=== PATIENT | female | born 1970 | race Caucasian/White ===

== ENCOUNTER 2017-01-16 02:58 | Emergency (ER) | payer SELFPAY ==
[2017-01-16] MEDS ORDERED: Aspirin 81 MG Tab.Chew PO ONE (03:02)
[2017-01-16] MEDS ORDERED: Sodium Chloride 0.9% 10 ML Syringe FLUSH PRN (03:02)
[2017-01-16] MEDS ORDERED: Sodium Chloride 0.9% 2.5 ML Syringe FLUSH PRN (03:02)
--- NOTE | 2017-01-16 03:06 | EDM.PDOC ---
ED HPI GENERAL MEDICAL PROBLEM - General Chief Complaint: Cardiovascular Problem Stated Complaint: HIGH BLOOD PRESSURE, SHORTNESS OF BREATH Time Seen by Provider: 01/16/17 03:03 - History of Present Illness INITIAL COMMENTS - FREE TEXT/NARRATIVE: HISTORY AND PHYSICAL: History of present illness: Patient's 46-year-old female with history of hypertension who states she stopped her medicine on her own presents with concern of chest pain started approximately 4 hours prior to arrival patient equivocates regarding associated shortness of breath no nausea no vomiting no diaphoresis no fever no chills Review of systems: As per history of present illness and below otherwise all systems reviewed and negative. Past medical history: As per history of present illness and as reviewed below otherwise noncontributory. Surgical history: As per history of present illness and as reviewed below otherwise noncontributory. Social history: No reported history of drug or alcohol abuse. Family history: As per history of present illness and as reviewed below otherwise noncontributory. Physical exam: HEENT: Atraumatic, normocephalic, pupils reactive, negative for conjunctival pallor or scleral icterus, mucous membranes moist, throat clear, neck supple, nontender, trachea midline. Lungs: Clear to auscultation, breath sounds equal bilaterally, chest nontender. Heart: S1S2, regular, negative for clicks, rubs, or JVD. Abdomen: Soft, nondistended, nontender. Negative for masses or hepatosplenomegaly. Negative for costovertebral tenderness. Pelvis: Stable nontender. Genitourinary: Deferred. Rectal: Deferred. Extremities: Atraumatic, negative for cords or calf pain. Neurovascular unremarkable. Neuro: Awake, alert, oriented. Cranial nerves II through XII unremarkable. Cerebellum unremarkable. Motor and sensory unremarkable throughout. Exam nonfocal. Diagnostics: CBC CMP PT/INR troponin chest x-ray EKG Therapeutics: IV O2 monitor Impression: #1 chest pain #2 medical noncompliance #3 history of hypertension Definitive disposition and diagnosis as appropriate pending reevaluation and review of above. - Related Data Allergies Allergy/AdvReac Type Severity Reaction Status Date / Time morphine Allergy Airway Verified 01/16/17 03:08 Tightness Penicillins Allergy Airway Verified 01/17/14 22:19 Tightness Home Meds: Home Meds . [No Known Home Meds] 01/16/17 [History] Social & Family History - Tobacco Use Years of Tobacco use: 15 Used Tobacco, but Quit: No Second Hand Smoke Exposure: No - Alcohol Use Days Per Week of Alcohol Use: 0 - Recreational Drug Use Recreational Drug Use: No ED ROS GENERAL - Review of Systems Review Of Systems: ROS reveals no pertinent complaints other than HPI. ED EXAM, GENERAL - Physical Exam Exam: See Below (See dictation) Course - Vital Signs Last Recorded V/S: Last Vital Signs Temp 36.4 C 01/16/17 03:09 Pulse 104 H 01/16/17 04:07 Resp 24 H 01/16/17 04:07 BP 238/156 H 01/16/17 04:07 Pulse Ox 95 01/16/17 04:07 - Orders/Labs/Meds Orders: Active Orders 24 hr Category Date Time Status Cardiac Monitoring [RC] . DIRECTED Care 01/16/17 03:02 Active EKG Documentation Completion [RC] STAT Care 01/16/17 03:02 Active Chest 1V Frontal [CR] Stat Exams 01/16/17 03:02 Taken Nitroglycerin/D5W [Nitroglycerin 25 MG/D5W 250 ML] Med 01/16/17 03:30 Active 25 mg in 250 ml IV TITRATE Nitroprusside [Nitropress] 50 mg Med 01/16/17 04:30 Ordered Dextrose 5% in Water 248 ml IV TITRATE Sodium Chloride 0.9% [Saline Flush] Med 01/16/17 03:02 Active 10 ml FLUSH ASDIRECTED PRN Sodium Chloride 0.9% [Saline Flush] Med 01/16/17 03:02 Active 2.5 ml FLUSH ASDIRECTED PRN Saline Lock Insert [OM.PC] Stat Oth 01/16/17 03:02 Ordered Medication Orders Nitroglycerin/Dextrose (Nitroglycerin 25 Mg/D5w 250 Ml) 25 mg in 250 mls @ 12 mls/hr IV TITRATE FAB; 20 MCG/MIN PRN Reason: Protocol Last Admin: 01/16/17 03:28 Dose: 20 mcg/min, 12 mls/hr Sodium Nitroprusside 50 mg/ (Dextrose/Water) 250 mls @ IV TITRATE FAB; 0.5 MCG /KG/MIN PRN Reason: Protocol Sodium Chloride (Saline Flush) 10 ml FLUSH ASDIRECTED PRN PRN Reason: Keep Vein Open Sodium Chloride (Saline Flush) 2.5 ml FLUSH ASDIRECTED PRN PRN Reason: Keep Vein Open Labs: Laboratory Tests 01/16/17 01/16/17 01/16/17 Range/Units 03:15 03:15 03:15 WBC 11.36 H (4.0-11.0) K/uL RBC 5.38 (4.30-5.90) M/uL Hgb 16.5 H (12.0-16.0) g/dL Hct 48.0 H (36.0-46.0) % MCV 89.2 (80.0-98.0) fL MCH 30.7 (27.0-32.0) pg MCHC 34.4 (31.0-37.0) g/dL RDW Std Deviation 44.2 (28.0-62.0) fl RDW Coeff of Radhika 14 (11.0-15.0) % Plt Count 205 (150-400) K/uL MPV 10.70 (7.40-12.00) fL Neut % (Auto) 55.3 (48.0-80.0) % Lymph % (Auto) 34.4 (16.0-40.0) % [place] % (Auto) 7.9 (0.0-15.0) % Eos % (Auto) 2.1 (0.0-7.0) % Baso % (Auto) 0.3 (0.0-1.5) % Neut # (Auto) 6.3 H (1.4-5.7) K/uL Lymph # (Auto) 3.9 H (0.6-2.4) K/uL [place] # (Auto) 0.9 H (0.0-0.8) K/uL Eos # (Auto) 0.2 (0.0-0.7) K/uL Baso # (Auto) 0.0 (0.0-0.1) K/uL Nucleated RBC % 0.0 /100WBC Nucleated RBCs # 0 K/uL INR 0.92 (0.86-1.11) Sodium 140 (136-146) mmol/L Potassium 4.0 (3.5-5.1) mmol/L Chloride 106 (98-110) mmol/L Carbon Dioxide 22 (21-31) mmol/L BUN 19 (6.0-23.0) mg/dL Creatinine 0.9 (0.6-1.5) mg/dL Est Cr Clr Drug Dosing 89.18 mL/min Estimated GFR (MDRD) > 60.0 ml/min Glucose 119 H (60-110) mg/dL Calcium 9.2 (8.8-10.8) mg/dL Total Bilirubin 0.5 (0.1-1.5) mg/dL AST 20 (5-40) IU/L ALT 25 (8-54) IU/L Alkaline Phosphatase 94 (40-150) Troponin I (0.0-0.29) NG/ML Total Protein 7.7 (6.0-8.0) g/dL Albumin 4.5 (3.5-5.0) g/dL Globulin 3.2 (2.0-3.5) g/dL Albumin/Globulin Ratio 1.4 (1.3-2.8) Amylase 46 (10-90) U/L Lipase 32 (7-80) U/L 01/16/17 Range/Units 03:15 WBC (4.0-11.0) K/uL RBC (4.30-5.90) M/uL Hgb (12.0-16.0) g/dL Hct (36.0-46.0) % MCV (80.0-98.0) fL MCH (27.0-32.0) pg MCHC (31.0-37.0) g/dL RDW Std Deviation (28.0-62.0) fl RDW Coeff of Radhika (11.0-15.0) % Plt Count (150-400) K/uL MPV (7.40-12.00) fL Neut % (Auto) (48.0-80.0) % Lymph % (Auto) (16.0-40.0) % [place] % (Auto) (0.0-15.0) % Eos % (Auto) (0.0-7.0) % Baso % (Auto) (0.0-1.5) % Neut # (Auto) (1.4-5.7) K/uL Lymph # (Auto) (0.6-2.4) K/uL [place] # (Auto) (0.0-0.8) K/uL Eos # (Auto) (0.0-0.7) K/uL Baso # (Auto) (0.0-0.1) K/uL Nucleated RBC % /100WBC Nucleated RBCs # K/uL INR (0.86-1.11) Sodium (136-146) mmol/L Potassium (3.5-5.1) mmol/L Chloride (98-110) mmol/L Carbon Dioxide (21-31) mmol/L BUN (6.0-23.0) mg/dL Creatinine (0.6-1.5) mg/dL Est Cr Clr Drug Dosing mL/min Estimated GFR (MDRD) ml/min Glucose (60-110) mg/dL Calcium (8.8-10.8) mg/dL Total Bilirubin (0.1-1.5) mg/dL AST (5-40) IU/L ALT (8-54) IU/L Alkaline Phosphatase (40-150) Troponin I < 0.10 (0.0-0.29) NG/ML Total Protein (6.0-8.0) g/dL Albumin (3.5-5.0) g/dL Globulin (2.0-3.5) g/dL Albumin/Globulin Ratio (1.3-2.8) Amylase (10-90) U/L Lipase (7-80) U/L Meds: Medications Generic Name Dose Route Start Last Admin Trade Name Freq PRN Reason Stop Dose Admin Nitroglycerin/Dextrose 25 mg in 250 mls @ 12 mls/hr 01/16/17 03:30 01/16/17 03:28 Nitroglycerin 25 Mg/D5w 250 Ml IV 20 mcg/min TITRATE FAB 12 mls/hr Protocol Administration 20 MCG/MIN Sodium Nitroprusside 50 mg/ 250 mls @ 01/16/17 04:30 Dextrose/Water IV TITRATE FAB Protocol 0.5 MCG/KG/MIN Sodium Chloride 10 ml 01/16/17 03:02 Saline Flush FLUSH ASDIRECTED PRN Keep Vein Open Sodium Chloride 2.5 ml 01/16/17 03:02 Saline Flush FLUSH ASDIRECTED PRN Keep Vein Open Discontinued Medications Generic Name Dose Route Start Last Admin Trade Name Freq PRN Reason Stop Dose Admin Acetaminophen 1,000 mg 01/16/17 04:11 01/16/17 04:19 Tylenol Extra Strength PO 01/16/17 04:12 1,000 mg ONETIME ONE Administration Aspirin 162 mg 01/16/17 03:02 01/16/17 03:16 Aspirin PO 01/16/17 03:03 162 mg ONETIME ONE Administration Hydralazine HCl 10 mg 01/16/17 03:17 01/16/17 03:25 Apresoline IVPUSH 01/16/17 03:18 10 mg ONETIME ONE Administration Hydralazine HCl 10 mg 01/16/17 04:12 01/16/17 04:18 Apresoline IVPUSH 01/16/17 04:13 10 mg ONETIME ONE Administration Hydralazine HCl 10 mg 01/16/17 04:22 Apresoline IVPUSH 01/16/17 04:23 ONETIME ONE Lorazepam 1 mg 01/16/17 04:21 Ativan IVPUSH 01/16/17 04:22 ONETIME ONE Ondansetron HCl 4 mg 01/16/17 03:27 01/16/17 03:30 Zofran IVPUSH 01/16/17 03:28 4 mg ONETIME ONE Administration Ondansetron HCl Confirm 01/16/17 03:28 01/16/17 03:53 Zofran Administered 01/16/17 03:29 Not Given Dose 4 mg .ROUTE .STK-MED ONE Departure - Departure Time of Disposition: 04:29 Disposition: DC/Tfer to Acute Hospital 02 Reason for Transfer *Q: Other Condition: serious Clinical Impression: Chest pain, Hypertension Forms: ED Department Discharge - My Orders Last 24 Hours: My Active Orders 01/16/17 03:02 Cardiac Monitoring [RC] . DIRECTED EKG Documentation Completion [RC] STAT Chest 1V Frontal [CR] Stat Sodium Chloride 0.9% [Saline Flush] 10 ml FLUSH ASDIRECTED PRN Sodium Chloride 0.9% [Saline Flush] 2.5 ml FLUSH ASDIRECTED PRN Saline Lock Insert [OM.PC] Stat 01/16/17 03:30 Nitroglycerin/D5W [Nitroglycerin 25 MG/D5W 250 ML] 25 mg in 250 ml IV TITRATE 01/16/17 04:30 Nitroprusside [Nitropress] 50 mg Dextrose 5% in Water 248 ml IV TITRATE - Assessment/Plan Last 24 Hours: My Active Orders 01/16/17 03:02 Cardiac Monitoring [RC] . DIRECTED EKG Documentation Completion [RC] STAT Chest 1V Frontal [CR] Stat Sodium Chloride 0.9% [Saline Flush] 10 ml FLUSH ASDIRECTED PRN Sodium Chloride 0.9% [Saline Flush] 2.5 ml FLUSH ASDIRECTED PRN Saline Lock Insert [OM.PC] Stat 01/16/17 03:30 Nitroglycerin/D5W [Nitroglycerin 25 MG/D5W 250 ML] 25 mg in 250 ml IV TITRATE 01/16/17 04:30 Nitroprusside [Nitropress] 50 mg Dextrose 5% in Water 248 ml IV TITRATE
[2017-01-16] MEDS ORDERED: hydrALAZINE 20 MG/ML SDV IVPUSH ONE ×3 (03:17→04:22)
[2017-01-16] MEDS ORDERED: Ondansetron 4 MG/2 ML SDV IVPUSH ONE (03:27)
[2017-01-16] MEDS ORDERED: Ondansetron 4 MG/2 ML SDV ONE (03:28)
[2017-01-16] MEDS ORDERED: Nitroglycerin/D5W 25 MG/250 ML BOTTLE IV SCH (03:30)
[2017-01-16 03:41] LABS: CHLORIDE,CL 106 mmol/L (98-110); SODIUM,NA 140 mmol/L (136-146)
[2017-01-16 04:07] VITALS: BP 238/156
[2017-01-16] MEDS ORDERED: Acetaminophen 500 MG Tab PO ONE (04:11)
[2017-01-16] MEDS ORDERED: LORazepam 2 MG/ML MDV IVPUSH ONE (04:21)
[2017-01-16] MEDS ORDERED: Nitroprusside 50 MG in Dextrose 5% in Water 248 ML IV SCH ×2 (04:30)
--- NOTE | 2017-01-16 10:56 | CR ---
EXAM DATE: 01/16/17 PATIENT'S AGE: 46 Patient: JOCELYNN CALIX Facility: [place], [place] Site . Site : 1970 Study: XRay Chest [id number] 3:25:14 AM Ordering Physician: Austin Gonzalez Final Report: INDICATION: Chest pain. TECHNIQUE: Chest radiograph 1 view COMPARISON: None FINDINGS: Cardiovascular and mediastinum: The heart silhouette is normal in size and morphology. The mediastinum is normal in appearance. Lungs and pleural spaces: Both lungs are unremarkable in appearance. No sign of pleural effusion seen. No pneumothorax is identified. Bones and soft tissues: No significant findings. IMPRESSION: 1. No acute cardiopulmonary disease is seen. Dictated by Venkata Camejo MD @ 01/16/2017 3:53:27 AM Dictated by: Venkata Camejo MD @ 01/16/2017 03:53:31 (Electronic Signature) Report Signed by Proxy. [facility]
== END 2017-01-16 05:20 ==
LOC: MW.ED 02:58
DX: R07.9 Chest pain, unspecified (principal); I10 Essential (primary) hypertension; Z88.0 Allergy status to penicillin; Z88.5 Allergy status to narcotic agent
CPT/HCPCS: 36415; 71010; 80053; 82150; 83690; 84484; 85025; 85610; 93005; 96365; 96366; 96375; 96376; 99285; A9270; J0360; J2060; J7060; J2405

== ENCOUNTER 2018-01-01 20:09 | Observation (INO) | payer MEDICAID ==
[2018-01-01] MEDS ORDERED: Sodium Chloride 0.9% 1,000 ML IV ONE (20:10)
[2018-01-01] MEDS ORDERED: Aspirin 81 MG Tab.Chew PO ONE (20:10)
--- NOTE | 2018-01-01 20:23 | EDM.PDOC ---
ED HPI GENERAL MEDICAL PROBLEM - General Stated Complaint: CHEST PAIN Time Seen by Provider: 01/01/18 20:10 Source of Information: Reports: Patient History Limitations: Reports: No Limitations - History of Present Illness INITIAL COMMENTS - FREE TEXT/NARRATIVE: HISTORY AND PHYSICAL: History of present illness: Patient is a 47-year-old female who presents to the emergency room with complaints of chest pain that radiates into her left jaw and left shoulder. She states this started approximately 30 minutes prior to arrival, sudden onset. Complains of being diaphoretic, nauseated and lightheaded. Reports she took 2 baby aspirin this morning along with her home medications. States that nothing makes the pain better or worse. Denies any fever, chills, abdominal pain, vomiting, diarrhea or constipation. No history of smoking, alcohol or drug abuse. Review of systems: As per history of present illness and below otherwise all systems reviewed and negative. Past medical history: As per history of present illness and as reviewed below otherwise noncontributory. Surgical history: As per history of present illness and as reviewed below otherwise noncontributory. Social history: No reported history of drug or alcohol abuse. Family history: As per history of present illness and as reviewed below otherwise noncontributory. Physical exam: General: Well-developed and well-nourished 47-year-old female. Alert and oriented. Nontoxic appearing and in no acute distress. HEENT: Atraumatic, normocephalic, pupils equal and reactive bilaterally, negative for conjunctival pallor or scleral icterus, mucous membranes moist, throat clear, neck supple, nontender, trachea midline. No drooling or trismus noted. No meningeal signs Lungs: Clear to auscultation, breath sounds equal bilaterally, chest nontender. Heart: S1S2, regular rate and rhythm without overt murmur Abdomen: Soft, nondistended, obese, nontender. Negative for masses or hepatosplenomegaly. Negative for costovertebral tenderness. Pelvis: Stable nontender. Genitourinary: Deferred. Rectal: Deferred. Skin: Intact, warm, slightly diaphoretic. No lesions or rashes noted. Extremities: Atraumatic, moves all extremities per self without difficulty or deficits. Patient is ambulatory in the room. She is negative for cords or calf pain. Neurovascular unremarkable. Neuro: Awake, alert, oriented. Cranial nerves II through XII unremarkable. Cerebellum unremarkable. Motor and sensory unremarkable throughout. Exam nonfocal. Notes: Patient states that she does not currently have a primary care provider and has not seen a provider in approximately 6 months. She does routinely check her blood pressures which she reports has been normal. Our cardiac panel has been ordered. D.Dimer is slightly elevated; otherwise labs are unremarkable. Chest x-ray shows no evidence of infiltrate or pneumonia. EKG shows a normal sinus rhythm with a rate of 86. No changes from previous EKG on 01/16/2017. Will do a CTA at this time. Currently waiting for the CTA. Did discuss all the results that I have available at this time with the patient. She states she would like to be admitted for observation as she still just generally does not feel well. Hospitalist was consulted at this time. Dr Milelr will follow up on the CTA results and share this with the hospitalist. Diagnostics: CBC, CMP, troponin, EKG, one view chest Therapeutics: Aspirin, normal saline, nitroglycerin sublingual Impression: Chest Pain Plan: Observation Admission with Telemetry Definitive disposition and diagnosis as appropriate pending reevaluation and review of above. Onset: Today Duration: Minutes: Location: Reports: Neck, Chest - Related Data Allergies Allergy/AdvReac Type Severity Reaction Status Date / Time morphine Allergy Airway Verified 01/01/18 20:17 Tightness Penicillins Allergy Airway Verified 01/01/18 20:17 Tightness Home Meds: Home Meds . [No Known Home Meds] 01/16/17 [History] Past Medical History HEENT History: Reports: None Cardiovascular History: Reports: Hypertension Respiratory History: Reports: None Gastrointestinal History: Reports: None Genitourinary History: Reports: None Musculoskeletal History: Reports: None Neurological History: Reports: None Psychiatric History: Reports: Anxiety Endocrine/Metabolic History: Reports: None Hematologic History: Reports: None Oncologic (Cancer) History: Reports: None Dermatologic History: Reports: None - Infectious Disease History Infectious Disease History: Reports: None - Past Surgical History HEENT Surgical History: Reports: None Female Surgical History: Reports: None Social & Family History - Family History Family Medical History: Noncontributory ED ROS GENERAL - Review of Systems Review Of Systems: ROS reveals no pertinent complaints other than HPI. ED EXAM, GENERAL - Physical Exam Exam: See Below (See dictation) Course - Vital Signs Last Recorded V/S: Last Vital Signs Temp 97.8 F 01/01/18 20:14 Pulse 80 01/01/18 20:46 Resp 24 H 01/01/18 20:14 BP 164/87 H 01/01/18 20:46 Pulse Ox 98 01/01/18 20:46 - Orders/Labs/Meds Orders: Active Orders 24 hr Category Date Time Status EKG Documentation Completion [RC] STAT Care 01/01/18 20:10 Active CTA Chest W WO Contrast [Ang Chest] [CT] Stat Exams 01/01/18 21:05 Ordered Chest 1V Frontal [CR] Stat Exams 01/01/18 20:10 Taken Nitroglycerin [Nitrostat] Med 01/01/18 20:10 Active 0.4 mg SL Q5M PRN Medication Orders Nitroglycerin (Nitrostat) 0.4 mg SL Q5M PRN PRN Reason: Chest Pain Last Admin: 01/01/18 20:39 Dose: 0.4 mg Admin: 01/01/18 20:34 Dose: 0.4 mg Labs: Laboratory Tests 01/01/18 01/01/18 01/01/18 Range/Units 20:25 20:25 20:25 WBC 6.88 (4.0-11.0) K/uL RBC 4.79 (4.30-5.90) M/uL Hgb 15.3 (12.0-16.0) g/dL Hct 43.6 (36.0-46.0) % MCV 91.0 (80.0-98.0) fL MCH 31.9 (27.0-32.0) pg MCHC 35.1 (31.0-37.0) g/dL RDW Std Deviation 44.4 (28.0-62.0) fl RDW Coeff of Radhika 13 (11.0-15.0) % Plt Count 149 L (150-400) K/uL MPV 10.30 (7.40-12.00) fL Neut % (Auto) 51.4 (48.0-80.0) % Lymph % (Auto) 35.9 (16.0-40.0) % [place] % (Auto) 8.9 (0.0-15.0) % Eos % (Auto) 3.5 (0.0-7.0) % Baso % (Auto) 0.3 (0.0-1.5) % Neut # (Auto) 3.5 (1.4-5.7) K/uL Lymph # (Auto) 2.5 H (0.6-2.4) K/uL [place] # (Auto) 0.6 (0.0-0.8) K/uL Eos # (Auto) 0.2 (0.0-0.7) K/uL Baso # (Auto) 0.0 (0.0-0.1) K/uL Nucleated RBC % 0.0 /100WBC Nucleated RBCs # 0 K/uL D-Dimer, Quantitative 0.54 H (0.0-0.52) mg/LFEU Sodium 139 (136-145) mmol/L Potassium 4.3 (3.5-5.1) mmol/L Chloride 107 (98-107) mmol/L Carbon Dioxide 26.5 (21.0-32.0) mmol/L BUN 16 (7.0-18.0) mg/dL Creatinine 1.0 (0.6-1.0) mg/dL Est Cr Clr Drug Dosing 76.90 mL/min Estimated GFR (MDRD) 59.2 ml/min Glucose 141 H (74-106) mg/dL Calcium 9.3 (8.5-10.1) mg/dL Total Bilirubin 0.3 (0.2-1.0) mg/dL AST 20 (15-37) IU/L ALT 32 (14-63) IU/L Alkaline Phosphatase 66 (46-116) U/L Troponin I < 0.050 (0.000-0.056) ng/mL Total Protein 7.2 (6.4-8.2) g/dL Albumin 3.9 (3.4-5.0) g/dL Globulin 3.3 (2.0-3.5) g/dL Albumin/Globulin Ratio 1.2 L (1.3-2.8) Meds: Medications Generic Name Dose Route Start Last Admin Trade Name Freq PRN Reason Stop Dose Admin Nitroglycerin 0.4 mg 01/01/18 20:10 01/01/18 20:39 Nitrostat SL 0.4 mg Q5M PRN Administration Chest Pain Discontinued Medications Generic Name Dose Route Start Last Admin Trade Name Freq PRN Reason Stop Dose Admin Aspirin 324 mg 01/01/18 20:10 01/01/18 20:31 Aspirin PO 01/01/18 20:11 Not Given ONETIME ONE Sodium Chloride 1,000 mls @ 999 mls/hr 01/01/18 20:10 01/01/18 20:31 Normal Saline IV 01/01/18 21:10 999 mls/hr STAT ONE Administration Departure - Departure Clinical Impression: Chest pain, rule out acute myocardial infarction Referrals: PCP,None [Primary Care Provider] - - My Orders Last 24 Hours: My Active Orders 01/01/18 20:10 EKG Documentation Completion [RC] STAT Chest 1V Frontal [CR] Stat Nitroglycerin [Nitrostat] 0.4 mg SL Q5M PRN 01/01/18 21:05 CTA Chest W WO Contrast [Ang Chest] [CT] Stat - Assessment/Plan Last 24 Hours: My Active Orders 01/01/18 20:10 EKG Documentation Completion [RC] STAT Chest 1V Frontal [CR] Stat Nitroglycerin [Nitrostat] 0.4 mg SL Q5M PRN 01/01/18 21:05 CTA Chest W WO Contrast [Ang Chest] [CT] Stat
[2018-01-01] MEDS: Nitroglycerin 0.4 MG Tab.SL SL PRN ×2 (20:34→20:39)
[2018-01-01 20:52] LABS: CHLORIDE,CL 107 mmol/L (98-107); SODIUM,NA 139 mmol/L (136-145)
[2018-01-01] MEDS ORDERED: hydrALAZINE 20 MG/ML SDV IVPUSH PRN (23:43)
[2018-01-01] MEDS ORDERED: Nitroglycerin 2% Oint 1 GM UD Packet TOP PRN (23:44)
[2018-01-01] MEDS ORDERED: Enoxaparin 40 MG/0.4 ML Syringe SUBCUT SCH (23:45)
[2018-01-01] MEDS ORDERED: HYDROmorphone 2 MG/ML Syringe IVPUSH ONE (23:55)
[2018-01-01] MEDS ORDERED: HYDROmorphone 2 MG/ML SDV IVPUSH PRN (23:56)
[2018-01-02] MEDS ORDERED: HYDROmorphone 2 MG/ML SDV IVPUSH ONE (00:15)
[2018-01-02] MEDS ORDERED: Metoprolol Tartrate 5 MG/5 ML SDV IVPUSH ONE (00:17)
[2018-01-02] MEDS ORDERED: atorvaSTATin 40 MG Tab PO ONE (00:17)
[2018-01-02] MEDS ORDERED: atorvaSTATin 40 MG Tab ONE (00:28)
[2018-01-02] MEDS ORDERED: Carvedilol 25 MG Tab PO STA (00:50)
[2018-01-02] MEDS ORDERED: Heparin Sodium 5,000 Units/ML Vial IVPUSH PRN (00:54)
[2018-01-02] MEDS ORDERED: LORazepam 2 MG/ML SDV IVPUSH ONE (00:58)
[2018-01-02] MEDS ORDERED: LORazepam 2 MG/ML SDV IVPUSH PRN (00:59)
[2018-01-02] MEDS ORDERED: Nitroglycerin/D5W 25 MG/250 ML BOTTLE IV SCH (01:00)
[2018-01-02] MEDS: Heparin Sod,Pork In 0.45% Nacl 25,000 UNIT/500 ML IV.SOLN IV SCH ×2 (01:11→11:10)
[2018-01-02] MEDS ORDERED: Ondansetron 4 MG/2 ML SDV IVPUSH PRN (02:10)
[2018-01-02] MEDS: Acetaminophen 325 MG Tab PO PRN ×2 (02:20→06:27)
[2018-01-02 07:02] LABS: CHLORIDE,CL 108 mmol/L (98-107); SODIUM,NA 140 mmol/L (136-145)
[2018-01-02] MEDS ORDERED: Atropine 0.4 MG/ML SDV IVPUSH STA (07:02)
[2018-01-02] MEDS ORDERED: Atropine 0.1 MG/ML 10 ML Syringe IVPUSH STA (07:11)
[2018-01-02] MEDS ORDERED: Carvedilol 25 MG Tab PO SCH (09:00)
[2018-01-02] MEDS ORDERED: amLODIPine 5 MG Tab PO SCH (09:00)
--- NOTE | 2018-01-02 10:28 | PCM.HP ---
H&P History of Present Illness - General Date of Service: 01/02/18 Admit Problem/Dx: Admission Diagnosis/Problem Admission Diagnosis/Problem Chest pain Source of Information: Patient History Limitations: Reports: No Limitations - History of Present Illness Symptom Onset Date: 01/01/18 Duration of Symptoms: Reports: Hour(s): Location: Reports: Chest Quality: Reports: Pressure Left Chest Pain Score (Numeric/FACES): 4 - Related Data Allergies/Adverse Reactions: Allergies Allergy/AdvReac Type Severity Reaction Status Date / Time morphine Allergy Airway Verified 01/01/18 20:17 Tightness Penicillins Allergy Airway Verified 01/01/18 20:17 Tightness Home Medications: Home Meds Carvedilol [Coreg] 25 mg PO BID 01/01/18 [History] Losartan/Hydrochlorothiazide [Losartan-HCTZ 100-25 MG] each PO DAILY 01/01/18 [ History] amLODIPine [Norvasc] 10 mg PO DAILY 01/01/18 [History] HYDROmorphone [Dilaudid] 0.5 mg IVPUSH Q3H PRN sdv 01/02/18 [Rx] Heparin Sodium 0 units IVPUSH ASDIRECTED PRN vial 01/02/18 [Rx] LORazepam [Ativan] 1 mg IVPUSH Q4H PRN vial 01/02/18 [Rx] Nitroglycerin [Nitro-Bid 2%] 1 gm TOP Q6H PRN packet 01/02/18 [Rx] Past Medical History HEENT History: Reports: None Cardiovascular History: Reports: Hypertension Respiratory History: Reports: None Gastrointestinal History: Reports: None Genitourinary History: Reports: None Musculoskeletal History: Reports: None Neurological History: Reports: None Psychiatric History: Reports: Anxiety Endocrine/Metabolic History: Reports: None Hematologic History: Reports: None Oncologic (Cancer) History: Reports: None Dermatologic History: Reports: None - Infectious Disease History Infectious Disease History: Reports: None - Past Surgical History HEENT Surgical History: Reports: None Female Surgical History: Reports: None Social & Family History - Family History Family Medical History: Noncontributory - Tobacco Use Smoking Status *Q: Former Smoker Years of Tobacco use: 25 Used Tobacco, but Quit: Yes Month/Year Tobacco Last Used: 2013 - Caffeine Use Caffeine Use: Reports: None - Recreational Drug Use Recreational Drug Use: No H&P Review of Systems - Review of Systems: Review Of Systems: See Below General: Reports: Fatigue, Weight Loss (45lbs in 1 mo) HEENT: Reports: No Symptoms Pulmonary: Reports: No Symptoms Cardiovascular: Reports: Chest Pain Gastrointestinal: Reports: No Symptoms Genitourinary: Reports: No Symptoms Musculoskeletal: Reports: No Symptoms Skin: Reports: No Symptoms Psychiatric: Reports: No Symptoms Neurological: Reports: No Symptoms Hematologic/Lymphatic: Reports: No Symptoms Exam - Exam Exam: See Below - Vital Signs Vital Signs: Last Vital Signs Temp 98.5 F 01/02/18 04:00 Pulse 57 L 01/02/18 08:44 Resp 15 01/02/18 07:00 BP 121/61 01/02/18 08:44 Pulse Ox 96 01/02/18 07:00 Weight: 373 lb 7.409 oz - Exam General: Alert, Oriented, Cooperative HEENT: Conjunctiva Clear, EOMI, Hearing Intact, Mucosa Moist & [place] Neck: Supple, Trachea Midline. No: JVD Lungs: Clear to Auscultation, Normal Respiratory Effort Cardiovascular: Regular Rate, Regular Rhythm, Normal S1, Normal S2 GI/Abdominal Exam: Normal Bowel Sounds, Soft, Non-Tender, No Organomegaly, No Distention, No Abnormal Bruit Back Exam: Normal Inspection Extremities: Normal Inspection, Normal Range of Motion, Non-Tender Skin: Warm, Dry Neurological: Cranial Nerves Intact Neuro Extensive - Mental Status: Alert, Oriented x3 Neuro Extensive - Motor, Sensory, Reflexes: CN II-XII Intact Psychiatric: Alert, Normal Affect - Patient Data Lab Results Last 24 hrs: Laboratory Results - last 24 hr 01/01/18 01/01/18 01/01/18 Range/Units 20:25 20:25 20:25 WBC 6.88 (4.0-11.0) K/uL RBC 4.79 (4.30-5.90) M/uL Hgb 15.3 (12.0-16.0) g/dL Hct 43.6 (36.0-46.0) % MCV 91.0 (80.0-98.0) fL MCH 31.9 (27.0-32.0) pg MCHC 35.1 (31.0-37.0) g/dL RDW Std Deviation 44.4 (28.0-62.0) fl RDW Coeff of Radhika 13 (11.0-15.0) % Plt Count 149 L (150-400) K/uL MPV 10.30 (7.40-12.00) fL Neut % (Auto) 51.4 (48.0-80.0) % Lymph % (Auto) 35.9 (16.0-40.0) % Braxton % (Auto) 8.9 (0.0-15.0) % Eos % (Auto) 3.5 (0.0-7.0) % Baso % (Auto) 0.3 (0.0-1.5) % Neut # (Auto) 3.5 (1.4-5.7) K/uL Lymph # (Auto) 2.5 H (0.6-2.4) K/uL Braxton # (Auto) 0.6 (0.0-0.8) K/uL Eos # (Auto) 0.2 (0.0-0.7) K/uL Baso # (Auto) 0.0 (0.0-0.1) K/uL Nucleated RBC % 0.0 /100WBC Nucleated RBCs # 0 K/uL APTT (18.6-31.3) SEC D-Dimer, Quantitative 0.54 H (0.0-0.52) mg/LFEU Sodium 139 (136-145) mmol/L Potassium 4.3 (3.5-5.1) mmol/L Chloride 107 (98-107) mmol/L Carbon Dioxide 26.5 (21.0-32.0) mmol/L BUN 16 (7.0-18.0) mg/dL Creatinine 1.0 (0.6-1.0) mg/dL Est Cr Clr Drug Dosing 76.90 mL/min Estimated GFR (MDRD) 59.2 ml/min Glucose 141 H (74-106) mg/dL Calcium 9.3 (8.5-10.1) mg/dL Total Bilirubin 0.3 (0.2-1.0) mg/dL AST 20 (15-37) IU/L ALT 32 (14-63) IU/L Alkaline Phosphatase 66 (46-116) U/L Troponin I < 0.050 (0.000-0.056) ng/mL B-Natriuretic Peptide (<100) PG/ML Total Protein 7.2 (6.4-8.2) g/dL Albumin 3.9 (3.4-5.0) g/dL Globulin 3.3 (2.0-3.5) g/dL Albumin/Globulin Ratio 1.2 L (1.3-2.8) Triglycerides (0-200) mg/dL Cholesterol (50-200) mg/dL LDL Cholesterol, Calc (60-180) mg/dL VLDL Cholesterol (5-55) mg/dL HDL Cholesterol (40-60) mg/dL Cholesterol/HDL Ratio (3.3-6.0) TSH 3rd Generation (0.36-3.74) uIU/mL 01/01/18 01/02/18 01/02/18 Range/Units 20:25 00:35 00:35 WBC (4.0-11.0) K/uL RBC (4.30-5.90) M/uL Hgb (12.0-16.0) g/dL Hct (36.0-46.0) % MCV (80.0-98.0) fL MCH (27.0-32.0) pg MCHC (31.0-37.0) g/dL RDW Std Deviation (28.0-62.0) fl RDW Coeff of Radhika (11.0-15.0) % Plt Count (150-400) K/uL MPV (7.40-12.00) fL Neut % (Auto) (48.0-80.0) % Lymph % (Auto) (16.0-40.0) % Braxton % (Auto) (0.0-15.0) % Eos % (Auto) (0.0-7.0) % Baso % (Auto) (0.0-1.5) % Neut # (Auto) (1.4-5.7) K/uL Lymph # (Auto) (0.6-2.4) K/uL Braxton # (Auto) (0.0-0.8) K/uL Eos # (Auto) (0.0-0.7) K/uL Baso # (Auto) (0.0-0.1) K/uL Nucleated RBC % /100WBC Nucleated RBCs # K/uL APTT 32.7 H (18.6-31.3) SEC D-Dimer, Quantitative (0.0-0.52) mg/LFEU Sodium (136-145) mmol/L Potassium (3.5-5.1) mmol/L Chloride (98-107) mmol/L Carbon Dioxide (21.0-32.0) mmol/L BUN (7.0-18.0) mg/dL Creatinine (0.6-1.0) mg/dL Est Cr Clr Drug Dosing mL/min Estimated GFR (MDRD) ml/min Glucose (74-106) mg/dL Calcium (8.5-10.1) mg/dL Total Bilirubin (0.2-1.0) mg/dL AST (15-37) IU/L ALT (14-63) IU/L Alkaline Phosphatase (46-116) U/L Troponin I < 0.050 (0.000-0.056) ng/mL B-Natriuretic Peptide 41 (<100) PG/ML Total Protein (6.4-8.2) g/dL Albumin (3.4-5.0) g/dL Globulin (2.0-3.5) g/dL Albumin/Globulin Ratio (1.3-2.8) Triglycerides (0-200) mg/dL Cholesterol (50-200) mg/dL LDL Cholesterol, Calc (60-180) mg/dL VLDL Cholesterol (5-55) mg/dL HDL Cholesterol (40-60) mg/dL Cholesterol/HDL Ratio (3.3-6.0) TSH 3rd Generation (0.36-3.74) uIU/mL 01/02/18 01/02/18 01/02/18 Range/Units 06:41 06:41 06:41 WBC 7.86 (4.0-11.0) K/uL RBC 4.42 (4.30-5.90) M/uL Hgb 13.7 (12.0-16.0) g/dL Hct 40.2 (36.0-46.0) % MCV 91.0 (80.0-98.0) fL MCH 31.0 (27.0-32.0) pg MCHC 34.1 (31.0-37.0) g/dL RDW Std Deviation 44.1 (28.0-62.0) fl RDW Coeff of Radhika 13 (11.0-15.0) % Plt Count 138 L (150-400) K/uL MPV 10.20 (7.40-12.00) fL Neut % (Auto) (48.0-80.0) % Lymph % (Auto) (16.0-40.0) % Braxton % (Auto) (0.0-15.0) % Eos % (Auto) (0.0-7.0) % Baso % (Auto) (0.0-1.5) % Neut # (Auto) (1.4-5.7) K/uL Lymph # (Auto) (0.6-2.4) K/uL Braxton # (Auto) (0.0-0.8) K/uL Eos # (Auto) (0.0-0.7) K/uL Baso # (Auto) (0.0-0.1) K/uL Nucleated RBC % 0.0 /100WBC Nucleated RBCs # 0 K/uL APTT (18.6-31.3) SEC D-Dimer, Quantitative (0.0-0.52) mg/LFEU Sodium 140 (136-145) mmol/L Potassium 3.9 (3.5-5.1) mmol/L Chloride 108 H (98-107) mmol/L Carbon Dioxide 25.9 (21.0-32.0) mmol/L BUN 12 (7.0-18.0) mg/dL Creatinine 0.9 (0.6-1.0) mg/dL Est Cr Clr Drug Dosing 85.44 mL/min Estimated GFR (MDRD) > 60.0 ml/min Glucose 107 H (74-106) mg/dL Calcium 8.6 (8.5-10.1) mg/dL Total Bilirubin (0.2-1.0) mg/dL AST (15-37) IU/L ALT (14-63) IU/L Alkaline Phosphatase (46-116) U/L Troponin I (0.000-0.056) ng/mL B-Natriuretic Peptide (<100) PG/ML Total Protein (6.4-8.2) g/dL Albumin (3.4-5.0) g/dL Globulin (2.0-3.5) g/dL Albumin/Globulin Ratio (1.3-2.8) Triglycerides 147 (0-200) mg/dL Cholesterol 134 (50-200) mg/dL LDL Cholesterol, Calc 75 (60-180) mg/dL VLDL Cholesterol 29 (5-55) mg/dL HDL Cholesterol 30 L (40-60) mg/dL Cholesterol/HDL Ratio 4.5 (3.3-6.0) TSH 3rd Generation (0.36-3.74) uIU/mL 01/02/18 01/02/18 01/02/18 Range/Units 06:41 06:41 06:41 WBC (4.0-11.0) K/uL RBC (4.30-5.90) M/uL Hgb (12.0-16.0) g/dL Hct (36.0-46.0) % MCV (80.0-98.0) fL MCH (27.0-32.0) pg MCHC (31.0-37.0) g/dL RDW Std Deviation (28.0-62.0) fl RDW Coeff of Radhika (11.0-15.0) % Plt Count (150-400) K/uL MPV (7.40-12.00) fL Neut % (Auto) (48.0-80.0) % Lymph % (Auto) (16.0-40.0) % Braxton % (Auto) (0.0-15.0) % Eos % (Auto) (0.0-7.0) % Baso % (Auto) (0.0-1.5) % Neut # (Auto) (1.4-5.7) K/uL Lymph # (Auto) (0.6-2.4) K/uL Braxton # (Auto) (0.0-0.8) K/uL Eos # (Auto) (0.0-0.7) K/uL Baso # (Auto) (0.0-0.1) K/uL Nucleated RBC % /100WBC Nucleated RBCs # K/uL APTT 206.8 H (18.6-31.3) SEC D-Dimer, Quantitative (0.0-0.52) mg/LFEU Sodium (136-145) mmol/L Potassium (3.5-5.1) mmol/L Chloride (98-107) mmol/L Carbon Dioxide (21.0-32.0) mmol/L BUN (7.0-18.0) mg/dL Creatinine (0.6-1.0) mg/dL Est Cr Clr Drug Dosing mL/min Estimated GFR (MDRD) ml/min Glucose (74-106) mg/dL Calcium (8.5-10.1) mg/dL Total Bilirubin (0.2-1.0) mg/dL AST (15-37) IU/L ALT (14-63) IU/L Alkaline Phosphatase (46-116) U/L Troponin I < 0.050 (0.000-0.056) ng/mL B-Natriuretic Peptide (<100) PG/ML Total Protein (6.4-8.2) g/dL Albumin (3.4-5.0) g/dL Globulin (2.0-3.5) g/dL Albumin/Globulin Ratio (1.3-2.8) Triglycerides (0-200) mg/dL Cholesterol (50-200) mg/dL LDL Cholesterol, Calc (60-180) mg/dL VLDL Cholesterol (5-55) mg/dL HDL Cholesterol (40-60) mg/dL Cholesterol/HDL Ratio (3.3-6.0) TSH 3rd Generation 2.12 (0.36-3.74) uIU/mL Result Diagrams: 01/02/18 06:41 01/02/18 06:41 EKG INTERPRETATION EKG Date: 01/01/18 Rhythm: NSR [place]: Normal P-Wave: Present QRS: Normal ST-T: Normal QT: Normal EKG Interpretation Comments: first degree av block - Problem List (1) Acute coronary syndrome SNOMED Code(s): 850257052 ICD Code: I24.9 - ACUTE ISCHEMIC HEART DISEASE, UNSPECIFIED Status: Acute (2) Unstable angina SNOMED Code(s): 7648341, 035392532 ICD Code: I20.0 - UNSTABLE ANGINA Status: Acute (3) Hypertensive emergency without congestive heart failure SNOMED Code(s): 852720911050107 ICD Code: I16.1 - HYPERTENSIVE EMERGENCY Status: Acute (4) Thyroid mass Status: Acute (5) Morbid obesity SNOMED Code(s): 327187275 ICD Code: E66.01 - MORBID (SEVERE) OBESITY DUE TO EXCESS CALORIES Status: Acute Problem List Initiated/Reviewed/Updated: Yes Orders Last 24hrs: Active Orders 24 hr Category Date Time Status Admission Status [Patient Status] [ADT] Stat ADT 01/01/18 22:23 Active Transfer Patient (Change bed) [ADT] Routine ADT 01/02/18 00:00 Ordered Cardiac Monitoring [RC] Q8H Care 01/01/18 23:34 Active EKG 12 Lead [EKG Documentation Completion] [RC] STAT Care 01/02/18 09:36 Active Notify Provider Consults [RC] ASDIRECTED Care 01/02/18 07:55 Active Oxygen Therapy [RC] PRN Care 01/01/18 23:34 Active Pulse Oximetry [RC] CONTINUOUS Care 01/01/18 23:34 Active Ready for Discharge [RC] PER UNIT ROUTINE Care 01/02/18 10:11 Active Telemetry Monitoring [Cardiac Monitoring] [RC] Q8H Care 01/01/18 22:33 Active Up ad Wendi [RC] ASDIRECTED Care 01/01/18 23:33 Active VTE/DVT Education [RC] PER UNIT ROUTINE Care 01/01/18 23:34 Active Vital Signs [RC] Q1H Care 01/01/18 23:34 Active Consult to Physician [CONS] Routine Cons 01/02/18 07:50 Active CTA Chest W WO Contrast [Ang Chest] [CT] Stat Exams 01/01/18 21:05 Taken Chest 1V Frontal [CR] Stat Exams 01/01/18 20:10 Taken PTT,PARTIAL THROMBOPLSTIN TIME [COAG] Q6H Lab 01/02/18 12:35 Ordered TROPONIN I [CHEM] Q6H Lab 01/02/18 12:35 Ordered Acetaminophen [Tylenol] Med 01/02/18 00:51 Active 650 mg PO Q4H PRN Carvedilol [Coreg] Med 01/02/18 09:00 Active 25 mg PO BID HYDROmorphone [Dilaudid] Med 01/01/18 23:56 Active 0.5 mg IVPUSH Q3H PRN Heparin Sod,Pork In 0.45% Nacl [Heparin-1/2Ns 25,000 Med 01/02/18 00:15 Active Units/500] 25,000 unit in 500 ml IV TITRATE Heparin Sodium Med 01/02/18 00:54 Active See Protocol IVPUSH ASDIRECTED PRN LORazepam [Ativan] Med 01/02/18 00:59 Active 1 mg IVPUSH Q4H PRN Losartan/Hydrochlorothiazide [Losartan-HCTZ 100-25 MG] Med 01/02/18 09:00 Unverified DOSE UNIT RTE FREQ Nitroglycerin [Nitro-Bid 2%] Med 01/01/18 23:44 Active 1 gm TOP Q6H PRN Nitroglycerin [Nitrostat] Med 01/01/18 20:10 Active 0.4 mg SL Q5M PRN Nitroglycerin/D5W [Nitroglycerin 25 MG/D5W 250 ML] Med 01/02/18 01:00 Active 25 mg in 250 ml IV TITRATE Ondansetron [Zofran] Med 01/02/18 02:10 Active 4 mg IVPUSH Q6H PRN amLODIPine [Norvasc] Med 01/02/18 09:00 Active 10 mg PO DAILY Resuscitation Status Routine Resus Stat 01/01/18 23:33 Ordered Medication Orders Acetaminophen (Tylenol) 650 mg PO Q4H PRN PRN Reason: Pain Last Admin: 01/02/18 06:27 Dose: 650 mg Admin: 01/02/18 02:20 Dose: 650 mg Amlodipine Besylate (Norvasc) 10 mg PO DAILY FAB Last Admin: 01/02/18 08:44 Dose: 10 mg Carvedilol (Coreg) 25 mg PO BID FAB Last Admin: 01/02/18 08:44 Dose: Not Given Heparin Sodium (Porcine) (Heparin Sodium) 0 units IVPUSH ASDIRECTED PRN; Protocol PRN Reason: Heparin Protocol Last Admin: 01/02/18 01:10 Dose: 5,000 units Hydromorphone HCl (Dilaudid) 0.5 mg IVPUSH Q3H PRN PRN Reason: Chest Pain Heparin Sod,Pork In 0.45% Nacl (Heparin-1/2ns 25,000 Units/500) 25,000 unit in 500 mls @ 60.984 mls/hr IV TITRATE FAB; Protocol Last Titration: 01/02/18 09:18 Dose: 15 units/kg/hr, 50.82 mls/hr Admin: 01/02/18 01:11 Dose: 18 units/kg/hr, 60.984 mls/hr Nitroglycerin/Dextrose (Nitroglycerin 25 Mg/D5w 250 Ml) 25 mg in 250 mls @ 3 mls/hr IV TITRATE FAB; Protocol Lorazepam (Ativan) 1 mg IVPUSH Q4H PRN PRN Reason: Anxiety Nitroglycerin (Nitrostat) 0.4 mg SL Q5M PRN PRN Reason: Chest Pain Last Admin: 01/01/18 20:39 Dose: 0.4 mg Admin: 01/01/18 20:34 Dose: 0.4 mg Nitroglycerin (Nitro-Bid 2%) 1 gm TOP Q6H PRN PRN Reason: Chest Pain Last Admin: 01/02/18 00:31 Dose: 1 gm Ondansetron HCl (Zofran) 4 mg IVPUSH Q6H PRN PRN Reason: Nausea/Vomiting Last Admin: 01/02/18 02:20 Dose: 4 mg
[2018-01-02 11:16] VITALS: BP 145/65
--- NOTE | 2018-01-02 17:13 | CR ---
EXAM DATE: 01/01/18 PATIENT'S AGE: 47 Patient: JOCELYNN CALIX Facility: [place], [place] Site . Site : 1970 Study: XRay Chest [id number]/24/2018 8:34:54 PM Ordering Physician: Doctor Last Final Report: INDICATION: chest pain TECHNIQUE: Chest 1 view. COMPARISON: 01/16/17 FINDINGS: Cardiovascular and mediastinum: Heart size and vasculature are normal in caliber and appearance. Mediastinum is within normal limits. Lungs and pleural space: Lungs are clear. No sign of infiltrate or mass. No sign of pleural effusion. No pneumothorax. Bones and soft tissues: No significant findings. IMPRESSION: Unremarkable chest. Dictated by: Mando Mathur MD @ 01/01/2018 20:41:13 (Electronic Signature) Report Signed by Proxy. [facility]
--- NOTE | 2018-01-02 17:23 | CT ---
EXAM DATE: 01/01/18 PATIENT'S AGE: 47 Patient: JOCELYNN CALIX Facility: [place], [place] Site . Site : 1970 Study: CT Chest Angio [id number]/24/2018 11:11:10 PM Ordering Physician: Doctor Last Final Report: INDICATION: Chest pain. Shortness of breath. Elevated D-dimer TECHNIQUE: CT chest pulmonary PE protocol acquired with 80 cc Isovue 370 IV contrast. COMPARISON: None. FINDINGS: Cardiovasculature: Contrast opacification of the pulmonary arterial tree is very limited, likely secondary to body habitus. No obvious large or central pulmonary embolism. Heart size is normal. Thoracic aorta is normal in caliber. Mediastinum/Melisa: No mass or adenopathy. There is a large 6 x 5 cm mass emanating from the left thyroid lobe with intrathoracic extension. Punctate calcifications are present within this mass. Lungs/Pleura: Lungs are clear. No pleural effusions. Chest wall/Axilla: No mass or adenopathy. Upper Abdomen: Unremarkable. Bones: No significant findings. IMPRESSION: 1. No obvious large or central pulmonary embolism. However, assessment of the pulmonary arterial tree is very limited. 2. Large 6 x 5 cm mass emanating from the left thyroid gland. Ultrasound evaluation and fine needle aspiration biopsy are recommended for further assessment. 3. Lungs are clear. Please note that all CT scans at this facility use dose modulation, iterative reconstruction, and/or weight-based dosing when appropriate to reduce radiation dose to as low as reasonably achievable. Dictated by Lul Hinkle MD @ Jan 01 2018 11:25PM (Electronic Signature) Report Signed by Proxy. [facility]
== END 2018-01-02 11:35 ==
LOC: MW.ED 20:09 → MW.MS 22:23 → MW.ICU 01-02 00:04
PROVIDERS: ADMIT Internal Medicine; ATTEND Internal Medicine
DX: I20.0 Unstable angina (principal); I10 Essential (primary) hypertension; F41.9 Anxiety disorder, unspecified; I16.1 Hypertensive emergency; E66.01 Morbid (severe) obesity due to excess calories; Z68.43 Body mass index [BMI] 50.0-59.9, adult; Z87.891 Personal history of nicotine dependence; Z79.899 Other long term (current) drug therapy; Z88.0 Allergy status to penicillin; Z88.5 Allergy status to narcotic agent
CPT/HCPCS: 36415; 71045; 71275; 80048; 80053; 80061; 83880; 84443; 84484; 85025; 85027; 85379; 85730; 93005; 96360; 99285; A9270; J0461; J1170; J1644; J2405; J7040; 96361; 96365; 96366; 96375; G0378

== ENCOUNTER 2018-08-30 19:09 | Emergency (ER) | payer MEDICAID ==
[2018-08-30] MEDS ORDERED: Aspirin 81 MG Tab.Chew PO ONE ×2 (19:12→19:30)
[2018-08-30] MEDS ORDERED: Sodium Chloride 0.9% 1,000 ML IV ONE (19:12)
--- NOTE | 2018-08-30 19:13 | EDM.PDOC ---
ED HPI GENERAL MEDICAL PROBLEM - General Stated Complaint: PT HAS CHEST PAINS Time Seen by Provider: 08/30/18 19:12 Source of Information: Reports: Patient - History of Present Illness INITIAL COMMENTS - FREE TEXT/NARRATIVE: HISTORY AND PHYSICAL: History of present illness: [Patient presents with intermittent chest pain/pressure she rates 8 out of 10 however is in no distress does not elicit any pain behaviors is no radiation arm neck or jaw no diaphoresis or shortness of breath Patient does have known thyroid nodules and is scheduled for removal of nodules or entire thyroid on September 09 she has no fever nausea vomiting chills sweats no shortness breath headache dizziness or palpitation no bowel or urine symptoms Patient is very anxious and her blood pressure is somewhat elevated on arrival, I did provide Ativan which resolved all symptoms including blood pressure ] Review of systems: As per history of present illness and below otherwise all systems reviewed and negative. Past medical history: As per history of present illness and as reviewed below otherwise noncontributory. Surgical history: As per history of present illness and as reviewed below otherwise noncontributory. Social history: No reported history of drug or alcohol abuse. Family history: As per history of present illness and as reviewed below otherwise noncontributory. Physical exam: HEENT: Atraumatic, normocephalic, pupils reactive, negative for conjunctival pallor or scleral icterus, mucous membranes moist, throat clear, neck supple, nontender, trachea midline. Lungs: Clear to auscultation, breath sounds equal bilaterally, chest nontender. Heart: S1S2, regular, negative for clicks, rubs, or JVD. Abdomen: Soft, nondistended, nontender. Negative for masses or hepatosplenomegaly. Negative for costovertebral tenderness. Pelvis: Stable nontender. Genitourinary: Deferred. Rectal: Deferred. Extremities: Atraumatic, negative for cords or calf pain. Neurovascular unremarkable. Neuro: Awake, alert, oriented. Cranial nerves II through XII unremarkable. Cerebellum unremarkable. Motor and sensory unremarkable throughout. Exam nonfocal. Diagnostics: [CBC CMP troponin lipase UA EKG Chest 1 view ] Therapeutics: Saline Aspirin 324 mg chewable Patient is feeling much better and would like to go home, She was offered observation admission but declined ession: [] chest Pressure resolved Hypertension resolved Anxiety about health Definitive disposition and diagnosis as appropriate pending reevaluation and review of above. left chest Pain Score (Numeric/FACES): 6 - Related Data Allergies Allergy/AdvReac Type Severity Reaction Status Date / Time morphine Allergy Airway Verified 08/30/18 19:28 Tightness Penicillins Allergy Airway Verified 08/30/18 19:28 Tightness Home Meds: Home Meds Carvedilol [Coreg] 25 mg PO BID 01/01/18 [History] Losartan/Hydrochlorothiazide [Losartan-HCTZ 100-25 MG] 1 tab PO DAILY 01/01/18 [ History] amLODIPine [Norvasc] 10 mg PO DAILY 01/01/18 [History] Past Medical History HEENT History: Reports: None Cardiovascular History: Reports: Hypertension Respiratory History: Reports: None Gastrointestinal History: Reports: None Genitourinary History: Reports: None Musculoskeletal History: Reports: None Neurological History: Reports: None Psychiatric History: Reports: Anxiety Endocrine/Metabolic History: Reports: None Hematologic History: Reports: None Oncologic (Cancer) History: Reports: None Dermatologic History: Reports: None - Infectious Disease History Infectious Disease History: Reports: None - Past Surgical History HEENT Surgical History: Reports: None Female Surgical History: Reports: None Social & Family History - Family History Family Medical History: Noncontributory - Caffeine Use Caffeine Use: Reports: None ED ROS GENERAL - Review of Systems Review Of Systems: See Below ED EXAM, GENERAL - Physical Exam Exam: See Below Course - Vital Signs Last Recorded V/S: Last Vital Signs Temp 98.5 F 08/30/18 19:09 Pulse 76 08/30/18 20:10 Resp 18 08/30/18 19:09 BP 132/83 08/30/18 20:10 Pulse Ox 96 08/30/18 20:10 - Orders/Labs/Meds Orders: Active Orders 24 hr Category Date Time Status EKG Documentation Completion [RC] STAT Care 08/30/18 19:12 Active Labs: Laboratory Tests 08/30/18 08/30/18 08/30/18 Range/Units 19:24 19:24 19:24 WBC 8.29 (4.0-11.0) K/uL RBC 4.79 (4.30-5.90) M/uL Hgb 15.1 (12.0-16.0) g/dL Hct 43.5 (36.0-46.0) % MCV 90.8 (80.0-98.0) fL MCH 31.5 (27.0-32.0) pg MCHC 34.7 (31.0-37.0) g/dL RDW Std Deviation 44.0 (28.0-62.0) fl RDW Coeff of Radhika 13 (11.0-15.0) % Plt Count 169 (150-400) K/uL MPV 10.40 (7.40-12.00) fL Neut % (Auto) 56.4 (48.0-80.0) % Lymph % (Auto) 29.9 (16.0-40.0) % [place] % (Auto) 10.1 (0.0-15.0) % Eos % (Auto) 3.4 (0.0-7.0) % Baso % (Auto) 0.2 (0.0-1.5) % Neut # (Auto) 4.7 (1.4-5.7) K/uL Lymph # (Auto) 2.5 H (0.6-2.4) K/uL [place] # (Auto) 0.8 (0.0-0.8) K/uL Eos # (Auto) 0.3 (0.0-0.7) K/uL Baso # (Auto) 0.0 (0.0-0.1) K/uL Nucleated RBC % 0.0 /100WBC Nucleated RBCs # 0 K/uL INR 0.92 Sodium 138 (136-145) mmol/L Potassium 3.8 (3.5-5.1) mmol/L Chloride 105 (98-107) mmol/L Carbon Dioxide 26.4 (21.0-32.0) mmol/L BUN 17 (7.0-18.0) mg/dL Creatinine 1.0 (0.6-1.0) mg/dL Est Cr Clr Drug Dosing 78.53 mL/min Estimated GFR (MDRD) 58.9 ml/min Glucose 119 H (74-106) mg/dL Calcium 9.6 (8.5-10.1) mg/dL Total Bilirubin 0.2 (0.2-1.0) mg/dL AST 11 L (15-37) IU/L ALT 20 (14-63) IU/L Alkaline Phosphatase 76 (46-116) U/L Troponin I < 0.050 (0.000-0.056) ng/mL Total Protein 7.8 (6.4-8.2) g/dL Albumin 3.7 (3.4-5.0) g/dL Globulin 4.1 H (2.6-4.0) g/dL Albumin/Globulin Ratio 0.9 (0.9-1.6) Lipase 168 (73-393) U/L TSH 3rd Generation 0.98 (0.36-3.74) uIU/mL Meds: Medications Discontinued Medications Generic Name Dose Route Start Last Admin Trade Name Freq PRN Reason Stop Dose Admin Aspirin 324 mg 08/30/18 19:12 08/30/18 19:31 Aspirin PO 08/30/18 19:13 Not Given ONETIME ONE Aspirin 81 mg 08/30/18 19:30 08/30/18 19:33 Aspirin PO 08/30/18 19:31 81 mg ONETIME ONE Administration Sodium Chloride 1,000 mls @ 999 mls/hr 08/30/18 19:12 08/30/18 19:33 Normal Saline IV 08/30/18 20:12 999 mls/hr STAT ONE Administration Lorazepam 1 mg 08/30/18 19:19 08/30/18 19:33 Ativan IVPUSH 08/30/18 19:20 1 mg ONETIME ONE Administration Metoprolol Tartrate 5 mg 08/30/18 20:15 08/30/18 20:24 Lopressor IVPUSH 08/30/18 20:26 Not Given Q5M FAB Departure - Departure Time of Disposition: 20:35 Disposition: Home, Self-Care 01 Condition: Good Clinical Impression: Hypertension, Anxiety about health - Discharge Information Additional Instructions: The following information is given to patients seen in the emergency department who are being discharged to home. This information is to outline your options for follow-up care. We provide all patients seen in our emergency department with a follow-up referral. The need for follow-up, as well as the timing and circumstances, are variable depending upon the specifics of your emergency department visit. If you don't have a primary care physician on staff, we will provide you with a referral. We always advise you to contact your personal physician following an emergency department visit to inform them of the circumstance of the visit and for follow-up with them and/or the need for any referrals to a consulting specialist. The emergency department will also refer you to a specialist when appropriate. This referral assures that you have the opportunity for follow-up care with a specialist. All of these measure are taken in an effort to provide you with optimal care, which includes your follow-up. Under all circumstances we always encourage you to contact your private physician who remains a resource for coordinating your care. When calling for follow-up care, please make the office aware that this follow-up is from your recent emergency room visit. If for any reason you are refused follow-up, please contact the [facility] emergency department at and asked to speak to the emergency department charge nurse. - My Orders Last 24 Hours: My Active Orders 08/30/18 19:12 EKG Documentation Completion [RC] STAT - Assessment/Plan Last 24 Hours: My Active Orders 08/30/18 19:12 EKG Documentation Completion [RC] STAT
[2018-08-30] MEDS ORDERED: LORazepam 2 MG/ML SDV IVPUSH ONE (19:19)
[2018-08-30 20:03] LABS: CHLORIDE,CL 105 mmol/L (98-107); SODIUM,NA 138 mmol/L (136-145)
--- NOTE | 2018-08-30 20:21 | CR ---
HISTORY: Pain. TECHNIQUE: Portable frontal view the chest. COMPARISON: None. FINDINGS: No airspace consolidation. No pleural effusion or pneumothorax. Pulmonary vasculature and cardiomediastinal silhouette are within normal limits. IMPRESSION: No acute findings. Dictated by Rome Agosto MD @ Aug 30 2018 8:19PM Signed by Dr. Rome Agosto @ Aug 30 2018 8:19PM
[2018-08-30] MEDS: Metoprolol Tartrate 5 MG/5 ML SDV IVPUSH SCH (20:24)
[2018-08-30 20:50] VITALS: BP 142/90
== END 2018-08-30 20:50 | disposition home or self-care (01) ==
LOC: MW.ED 19:09
DX: I10 Essential (primary) hypertension (principal); F41.9 Anxiety disorder, unspecified; Z88.0 Allergy status to penicillin; Z88.6 Allergy status to analgesic agent; Z79.899 Other long term (current) drug therapy
CPT/HCPCS: 36415; 71045; 80053; 83690; 84443; 84484; 85025; 85610; 93005; 96361; 96374; 99285; A9270; J2060; J7040

== ENCOUNTER 2022-09-08 23:42 | Emergency (ER) | payer MEDICAID ==
[2022-09-08] MEDS ORDERED: Ondansetron 4 MG Tab.DIS PO ONE (23:50)
[2022-09-09 02:41] VITALS: BP 153/88; PULSE 72
== END 2022-09-09 02:23 | disposition home or self-care (01) ==
LOC: MW.ED 23:42
DX: R11.2 Nausea with vomiting, unspecified (principal); I10 Essential (primary) hypertension; Z88.0 Allergy status to penicillin; Z88.5 Allergy status to narcotic agent; Z79.899 Other long term (current) drug therapy
CPT/HCPCS: 93005; 99283; A9270; 93010

== ENCOUNTER 2023-03-25 20:52 | Emergency (ER) | payer MEDICAID ==
[2023-03-25] MEDS ORDERED: traMADol 50 MG Tab PO ONE (21:14)
[2023-03-25] MEDS ORDERED: Lidocaine 4% 1 each Patch TOP STA (22:29)
[2023-03-25] MEDS ORDERED: Cyclobenzaprine 10 MG Tab PO ONE (22:29)
[2023-03-25 23:48] VITALS: BP 161/89; PULSE 86
== END 2023-03-25 23:00 | disposition home or self-care (01) ==
LOC: MW.ED 20:52
DX: M79.604 Pain in right leg (principal); I10 Essential (primary) hypertension; Z88.0 Allergy status to penicillin; Z88.5 Allergy status to narcotic agent
CPT/HCPCS: 93971; 99283; A9270